=== PATIENT | female | born 1995 ===

== ENCOUNTER 2017-11-18 10:32 | Emergency (ER) | payer BC ==
[2017-11-18] MEDS ORDERED: Sodium Chloride 0.9% 1,000 ML IV STA (11:02)
--- NOTE | 2017-11-18 11:06 | ED PDOC ---
Syncope/Near Syncope/Dizziness Time Seen by Provider: 11/18/17 11:03 Chief Complaint (Nursing): Syncope Chief Complaint (Provider): near syncope History Per: Patient, Other (22 y/o female brought to ED by co-students at [employer] for evaluation of near syncope noted today. Patient had stated she felt generally weak today (had missed breakfast) and was noted to fall to ground without passing out. Noted by teacher of [employer] --patient had recently disclosed that she was under a lot of stress. Patient denies any emotional events currently. States she has had similar episode in DR diagnosed as hypoglycemia.) Past Medical History Reviewed: Historical Data, Nursing Documentation, Vital Signs Vital Signs: Last Vital Signs Temp 96.6 F L 11/18/17 10:39 Pulse 92 H 11/18/17 10:39 Resp 18 11/18/17 10:39 BP 122/70 11/18/17 10:39 Pulse Ox 99 11/18/17 10:39 - Family History Family History: States: No Known Family Hx - Allergies Allergies/Adverse Reactions: Allergies Allergy/AdvReac Type Severity Reaction Status Date / Time Unobtainable Allergy Verified 11/18/17 10:39 Review of Systems ROS Statement: Except As Marked, All Systems Reviewed And Found Negative Physical Exam - Reviewed Nursing Documentation Reviewed: Yes Vital Signs Reviewed: Yes - Physical Exam Appears: Positive for: Well, Non-toxic, No Acute Distress Head Exam: Positive for: ATRAUMATIC, NORMAL INSPECTION, NORMOCEPHALIC Skin: Positive for: Normal Color, Warm, DRY Eye Exam: Positive for: EOMI, Normal appearance, PERRL ENT: Positive for: Normal ENT Inspection Neck: Positive for: Normal, Painless ROM Cardiovascular/Chest: Positive for: Regular Rate, Rhythm Respiratory: Positive for: CNT, Normal Breath Sounds Gastrointestinal/Abdominal: Positive for: Normal Exam, Soft Back: Positive for: Normal Inspection Extremity: Positive for: Normal ROM Neurologic/Psych: Positive for: Alert, Oriented - Laboratory Results Result Diagrams: 11/18/17 11:34 11/18/17 11:34 - ECG ECG: Positive for: Viewed By Me ECG Rhythm: Positive for: Sinus Rhythm (NSR 74BPM; NO ECTOPY NO ACUTE CHANGES) O2 Sat by Pulse Oximetry: 99 - Progress ED Course And Treament: patient feels improved after ns 1 liter wide open and eating meal. Patient to f/u with pmd for further evaluation of symptoms. Condition: Improved Disposition - Clinical Impression Clinical Impression: Near syncope - Patient ED Disposition Is Patient to be Admitted: No - Disposition Referrals: [facility] [Outside] Disposition Time: 12:39 Condition: FAIR Instructions: Near Fainting (DC) Forms: [facility] (Hungarian), [facility] ED School/Work Excuse Print Language: NIGERIAN
[2017-11-18 11:45] LABS: BASO % 0.6 % (0.0-2.0); EOS # 0.1 K/uL (0.0-0.7); EOS % 1.5 % (0.0-4.0); HEMOGLOBIN 12.5 g/dL (12.0-16.0); LYMPH # 1.4 K/uL (1.0-4.3); LYMPH % 21.6 % (20.0-40.0); MEAN CORPUSCULAR HEMOGLOBIN 27.1 pg (27.0-31.0); MEAN CORPUSCULAR HGB CONC 32.7 g/dL (33.0-37.0); MEAN PLATELET VOLUME 9.5 fl (7.2-11.7); MONO # 0.5 K/uL (0.0-0.8); MONO % 7.4 % (0.0-10.0); NEUT # 4.5 K/uL (1.8-7.0); NEUT % 68.9 % (50.0-75.0); RBC 4.61 Mil/uL (3.80-5.20); RED CELL DISTRIBUTION WIDTH 15.6 % (11.5-14.5); WHITE BLOOD COUNT 6.5 K/uL (4.8-10.8)
[2017-11-18 11:56] LABS: ALB/GLOB RATIO 1.1 (1.0-2.1); ALBUMIN 4.1 g/dL (3.5-5.0); ALT/SGPT 35 U/L (9-52); AST/SGOT 31 U/L (14-36); BLOOD UREA NITROGEN 10 mg/dl (7-17); CALCIUM 9.4 mg/dL (8.4-10.2); GFR AFRICAN-AMERICAN > 60; GFR NON-AFRICAN AMERICAN > 60
[2017-11-18 13:09] VITALS: BP 122/75; PULSE 81; RESP 16; TEMP 97.9; O2SAT 100
--- NOTE | 2017-11-18 17:50 | CARD ---
APPROVED REPORT EKG Measurement Heart [id number] ID [id number] <Conclusion> Normal sinus rhythm Normal ECG
== END 2017-11-18 13:10 | disposition home or self-care (01) ==
LOC: H.ER 10:32
DX: R55 Syncope and collapse (principal)
CPT/HCPCS: 80053; 81025; 82948; 83735; 84443; 85025; 93005; 99285; G0480; J7040